=== PATIENT | male | born 1965 | race Caucasian/White ===

== ENCOUNTER → 2024-11-28 | Outpatient (CLI) | payer OTHER ==
--- NOTE | 2024-11-29 09:19 | MR ---
EXAMINATION TYPE: MR brain wo/w con DATE OF EXAM: 11/28/2024 7:46 PM COMPARISON: None. CLINICAL INDICATION: Male, 59 years old with history of C34.92; PHH, Small Cell Lung CA TECHNIQUE: Multi planar, multi sequence imaging was performed through the brain including: T1, T2, In version recovery, susceptibility weighted imaging and gradient echo imaging and Diffusion weighted im aging. The patient was then given intravenous contrast and multi planar, T1 fat-saturation images wer e obtained. IV Contrast: 10 mL Gadobutrol FINDINGS: Scattered areas of abnormal enhancement, examples include: 3 mm in the right basal ganglia with some subtle postcontrast enhancement present. Additional right frontal lobe lesion measuring 6 mm at the g ray-white matter junction as well as right occipital/parietal region measuring 6 mm with predominantl y peripheral enhancement. 4 mm lesion posterior to the splenium corpus callosum measuring up to 4 mm. Axial postcontrast imaging series 701 image 118, 114, 100, 20 The corrales-white junctions, ventricular system, basal cisterns appear unremarkable. Diffusion-weighted imaging shows no evidence of restricted diffusion to suggest acute/subacute infarct. Intracranial ar terial flow voids are maintained. Midline structures show no abnormality. Scattered foci of high T2 s ignal intensity are seen within the periventricular white matter. The susceptibility weighted images do not reveal any evidence for micro-hemorrhage. The bone marrow signal is within normal limits. Paranasal sinuses and mastoid air cells: No significant paranasal sinus disease. Visualized orbits: Orbital contents are intact. IMPRESSION: 1. Few scattered subtly enhancing lesions at the corrales-white matter junction and in the right basal ga nglia concerning for metastatic disease. No evidence of intracranial mass, acute/subacute infarct, or abnormal enhancement. 2. Nonspecific white matter changes, likely related to small vessel ischemic disease. [facility], , 11/29/2024 9:17 AM
== END | disposition home or self-care (01) ==
LOC: RADMRIMAIN 18:53
PROVIDERS: ATTEND Internal Medicine Hematology & Oncology
DX: C34.92 Malignant neoplasm of unspecified part of left bronchus or lung (principal); I48.91 Unspecified atrial fibrillation; E78.5 Hyperlipidemia, unspecified; R90.82 White matter disease, unspecified
CPT/HCPCS: 70553; A9585

== ENCOUNTER → 2024-11-29 | Outpatient (CLI) | payer OTHER ==
--- NOTE | 2024-11-29 15:17 | CT ---
EXAMINATION TYPE: CT ChestAbdPelvis w con CT DLP: 1140.2 mGycm, Automated exposure control for dose reduction was used. 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 Oral contrast was administered. Two-dimensional coronal an d sagittal reconstructions were obtained. Findings: CHEST: LUNGS/ PLEURA: No pleural effusion or pneumothorax. Mild centrilobular emphysematous changes. Minimal biapical pleural parenchymal scarring. Left midlung patchy reticular opacities with bronchiectasis identified extending to the hilum. There is some left lung volume loss. Right lower lobe 6 mm pulmona ry nodule (series 207, image 39). Additional right upper lobe adjacent 3 mm pulmonary nodules (series 207, image 24). AIRWAY: Patent and unremarkable.. HEART: Size within normal limits.No pericardial effusion. MEDIASTINUM: No evidence of adenopathy. No lymph nodes greater than 1 short axis. VASCULATURE: No aortic aneurysm. MUSCULOSKELETAL: No acute osseous abnormalities. No aggressive osseous lesion. SOFT TISSUES/LYMPH NODES: Mild bilateral gynecomastia. LOWER NECK: No significant findings. ABDOMEN: ABDOMEN LIVER: Unremarkable GALLBLADDER AND BILE DUCTS: Unremarkable. PANCREAS: Unremarkable. SPLEEN: Unremarkable. ADRENAL GLANDS: Unremarkable. KIDNEYS AND URETERS: No evidence of hydronephrosis or renal calculus. The kidneys enhance symmetrical ly. Bilateral renal 1.1 cm cysts. Contrast is demonstrated within both collecting systems on the margot yed phase. PELVIS BLADDER: Incompletely distended but grossly unremarkable. REPRODUCTIVE: Prostate is enlarged in size measuring 5.1 cm in transverse dimension. ABDOMEN & PELVIS STOMACH AND BOWEL: Small hiatal hernia, duodenum is unremarkable. Enteric contrast reaches the proxim al transverse colon. No focal bowel wall thickening or surrounding inflammatory changes. The appendix is within normal limits. No evidence of bowel obstruction. PERITONEUM: No evidence of pneumoperitoneum or free fluid. VASCULATURE: Mild atherosclerotic calcifications are present throughout the abdominal aorta and its b ranches. No abdominal aortic aneurysm. MUSCULOSKELETAL: No acute osseous abnormalities. No aggressive osseous lesion. Mild degenerative disc disease. LYMPH NODES: No gross evidence for lymphadenopathy. SOFT TISSUE/ABDOMINAL WALL: Fat filled right inguinal hernia. IMPRESSION: Scattered left mid lung patchy reticular opacities with bronchiectasis extending to the hilum. This l ikely represents treated known lung cancer. Residual disease is difficult to exclude due to lack of p rior imaging. There are a few pulmonary nodules with largest in the right lower lobe measuring up to 6 mm. Raises concern for possible metastasis. Correlate with prior imaging. No evidence for metastasis within the abdomen or pelvis. No mediastinal adenopathy identified. [facility], , 11/29/2024 3:14 PM
== END | disposition home or self-care (01) ==
LOC: RADCTMAIN 10:42
PROVIDERS: ATTEND Internal Medicine Hematology & Oncology
DX: C34.92 Malignant neoplasm of unspecified part of left bronchus or lung (principal); J47.9 Bronchiectasis, uncomplicated; R91.8 Other nonspecific abnormal finding of lung field
CPT/HCPCS: 71260; 74177; 36415; Q9967